=== PATIENT | female | born 1975 | race Caucasian/White ===

== ENCOUNTER 2016-12-27 20:37 | Inpatient (IN) ==
[2016-12-27 21:05] LABS: MANUAL DIFF NEEDED? NO
[2016-12-27 21:12] LABS: BASO% 0.1 % (0.0-0.8); HEMATOCRIT 43.6 % (37.0-47.0); HEMOGLOBIN 14.8 g/dL (12.0-16.0); LYMPH% 12.4 % (20.5-51.1); MCH 28.2 PG (27-31); MCHC 33.9 g/dL (33-37); MONO# 0.48 X1000 (0.11-0.59); MONO% 3.5 % (1.7-9.3); MPV 9.6 FL (7.4-10.4); PLT 341 X1000 (130-400); RBC 5.25 XMIL (4.2-5.4)
[2016-12-27 21:20] LABS: INR 1.01; PROTIME 10.6 Seconds (9.2-11.7); PTT 26.7 Seconds (22.0-36.0)
[2016-12-27 21:33] LABS: AGAP 16; ALBUMIN 4.1 g/dL (3.5-5.0); ALKALINE PHOSPHATASE 83 U/L (32-104); BUN 9 mg/dL (8-22); CALCIUM 9.5 mg/dL (8.8-10.2); CHLORIDE 94 mmol/L (98-107); COSMO 273; GOT 30 U/L (10-30); GPT 37 U/L (10-36); POTASSIUM 4.4 mmol/L (3.5-5.1); SODIUM 136 mmol/L (136-145); TCO2 26 mmol/L (25-35); TOTAL BILIRUBIN 0.48 mg/dL (0.20-1.00); TOTAL PROTEIN 8.4 g/dL (6.3-8.3)
[2016-12-27] MEDS ORDERED: FLAGYL 500 MG/NS 500 MG/100 ML IVPB IV ONE (23:31)
[2016-12-27] MEDS ORDERED: NS 1,000 ML IV ONE (23:31)
[2016-12-27] MEDS ORDERED: LEVAQUIN 750 MG/D5W 750 MG/150 ML IVPB IV ONE (23:31)
[2016-12-28] MEDS: ZOFRAN IV PRN (00:46)
[2016-12-28] MEDS: LEVAQUIN PO SCH ×2 (01:23→21:31)
[2016-12-28] MEDS: NS 1,000 ML IV SCH ×2 (02:15→10:35)
[2016-12-28] MEDS ORDERED: METHADONE PO ONE (02:40)
--- NOTE | 2016-12-28 06:58 | HISTORY AND PHYSICAL ---
CHIEF COMPLAINT: Bloody stools. HISTORY OF PRESENTING ILLNESS: A 41-year-old, obese female with a history of lupus and chronic low back pain. Apparently, he has been on large amounts of pain medication including methadone and [place]. She presented to the emergency department with complaint of having bloody diarrhea for the past day or so. The patient states that she noticed a large amount of blood in the stools. The patient states that she is usually constipated, however she takes a bowel regimen and over the past day or so she developed these symptoms. She was evaluated in the ER, was it was noted that she did have bloody stools as per ER physician, and due to these findings it was thought that she would need hospitalization for further management. At the time of my examination, she had denied any headache, vision changes, fevers, chills, chest pain, shortness of breath or any recent weight changes. PAST MEDICAL HISTORY: 1. Lupus. 2. Chronic low back pain. PAST SURGICAL HISTORY: 1. Hysterectomy. 2. Bladder sling and mesh placement. ALLERGIES: 1. Ambien. 2. Nubain. 3. Stadol. CURRENT MEDICATIONS: As listed in the MAR. SOCIAL HISTORY: She denies any history of smoking, alcohol or illicit drug use. FAMILY HISTORY: No history of coronary disease. REVIEW OF SYSTEMS: Twelve point review of systems as in HPI. Other systems negative. PHYSICAL EXAMINATION: GENERAL: Cooperative, friendly, obese female. She is resting comfortably now. VITAL SIGNS: Temperature 99.2 degrees, pulse 148, respiration 18, blood pressure 130/63. She is saturating 96%. HEENT: Atraumatic, normocephalic. Extraocular movements intact. PERRLA. NECK: No masses. CHEST: Clear to auscultation. CARDIOVASCULAR: Regular rate and rhythm. ABDOMEN: Soft, obese, positive bowel sounds. EXTREMITIES: No edema. NEUROLOGIC: She is awake, alert, oriented x3. : No bladder distention. SKIN: Warm. LABORATORIES AND STUDIES: WBC 13.74, hemoglobin 14.8, hematocrit 43.6, platelets 341,000, sodium 136, potassium 4.4, chloride 94, CO2 of 26, BUN is 9, creatinine is 0.8, glucose is 141. ASSESSMENT: A 41 year obese female with a history of lupus and chronic low back pain who presents to emergency department with 1-day history of bloody mucus. He had bloody diarrhea. The patient will need hospitalization for further management. ASSESSMENT: 1. Hemorrhagic colitis. 2. Lupus. 3. Chronic low back pain. 4. Chronic pain syndrome. PLAN: 1. We will admit patient to medical floor. 2. We will keep patient NPO and start patient on IV fluids. 3. We will check stool studies and start patient on p.o. antibiotics due to benefits from it. 4. We will consult Gastroenterology. 5. We will restart home medications. 6. We will give patient pain control. 7. Put patient on DVT prophylaxis with SCDs. 8. We will continue to follow and reassess. cc: Shayne Pillai MD
[2016-12-28] MEDS: METHADONE PO SCH (09:00)
--- NOTE | 2016-12-28 09:45 | Diag Imaging Result Document ---
PROCEDURE NAME: CT ABD/PELVIS W/ IV CONT ONLY - 12/27/2016 CT ABDOMEN AND PELVIS WITH IV CONTRAST: COMPARISON: 07/17/2016. FINDINGS: There is diffuse hepatic steatosis. There is a tiny stable umbilical hernia containing only fat. There is diffuse colonic wall thickening extending from the mid transverse colon distally through the rectum consistent with nonspecific colitis/proctitis, likely infectious or inflammatory. There is mild inflammatory stranding surrounding this segment of the colon and rectum. There is no evidence of bowel obstruction. There has been a previous hysterectomy. No significant free fluid is identified, and there is no free abdominal gas. The remainder of the solid viscera of the abdomen and pelvis and the remainder of the GI tract is essentially unremarkable. IMPRESSION: 1. Colitis/proctitis as detailed above. 2. Diffuse hepatic steatosis. 3. Other incidental/nonacute findings detailed above. [facility]
[2016-12-28] MEDS ORDERED: CITRATE OF MAGNESIA PO ONE (13:21)
--- NOTE | 2016-12-28 17:10 | CONSULTATION ---
DATE OF CONSULTATION: 12/28/2016 REASON FOR CONSULTATION: Rectal bleeding. HISTORY OF PRESENT ILLNESS: This is a 41-year-old, white female, who reports feeling bad starting last week. Yesterday she had noticed abdominal cramping. She started having multiple diarrhea stools over the next 6 hours. She had felt like she was impacted initially. She had watery stool with some clumps. She reports chronic constipation due to chronic pain medication use. She has been on Amitiza in the past. Recently Dr. Haney had started her on Linzess. She is on methadone and [place] for chronic pain syndrome. The patient reports onset of rectal bleeding yesterday. She has had multiple bright red bloody stools with noted mucus. She denies fever. She has had nausea and an episode of vomiting. She denies hematemesis. She had a CT scan of the abdomen and pelvis on admission that showed colitis/proctitis, diffuse hepatic steatosis. She has stool studies done. C. Difficile toxin was negative. Stool culture and O and P are still pending. There was rare WBCs. Patient reports having a colonoscopy in the past over 15 years ago. She is not sure if she has ever had an EGD. She does state that she was told she had an ulcer in her stomach over 20 years ago. She reports having a hysterectomy and bladder sling surgery in 2009. Starting in 2012, she started having problems with frequent urinary tract infections, and had to have urinary catheter for almost 8 months. She states recently she has had 2 surgeries to take mesh that was placed during her hysterectomy out. Her last surgery was in [place] by urologist there in June 2015. She is currently living with her [id number]. Her is working in [place] and they have plans to move there eventually. PAST MEDICAL HISTORY: Fibromyalgia, Lupus, chronic pain. PAST SURGICAL HISTORY: 1. Hysterectomy with bladder sling and mesh placement. 2. Sinus surgery. ALLERGIES: Stadol and Nubain. HOME MEDICATIONS: 1. [place] 10/325 three times a day as needed. 2. Lexapro 20 mg daily. 3. Zofran 8 mg every 8 hours as needed. 4. Flexeril 10 mg three times a day as needed. 5. Ambien 10 mg every night as needed. 6. Methadone 10-20 mg 3 times a day as needed. 7. Xanax 1 mg three times a day. 8. Flexeril 10 mg three times a day as needed. SOCIAL HISTORY: She denies tobacco or alcohol use. She is . She has 2 children ages 18 and 20. She is currently living with her [id number]. Her works out of state. REVIEW OF SYSTEMS: Per HPI. PHYSICAL EXAMINATION: Vital Signs: Temperature 99.2 degrees, pulse 99, respirations 16, blood pressure 144/75. General: Patient is awake, alert, in no acute distress. HEENT: Normocephalic, atraumatic. Pupils equal, round, reactive to light. She does have a rash or acne on her face. Chest/Respiratory: Lung sounds essentially clear. Cardiovascular: Regular rate and rhythm. Abdomen: Soft. Positive bowel sounds. Obese. Some mild tenderness with palpation. Extremities: No lower extremity edema noted. Neurological: Cranial nerves 2- 12 grossly intact. Patient is awake, alert, oriented to person, place, and time. DIAGNOSTIC RESULTS: Hematology: White count 13.74, hemoglobin 14.8, hematocrit 43.6, MCV 83.0, platelet 341. Coagulation: Pro time 10.6, INR 1.01. PTT 26.7. Chemistry: Sodium 136, potassium 4.4, chloride 94, CO2 26, BUN 9, creatinine 0.8, glucose 141, total bilirubin 0.48, AST 30, ALT 37, alkaline phosphatase 83. ASSESSMENT: 1. Rectal bleeding. 2. Chronic constipation. 3. Abnormal computed tomography scan showing colitis versus proctitis. 4. Chronic pain syndrome on methadone and [place]. 5. Lupus. 6. Fibromyalgia. PLAN: Stool studies so far have been negative. O and P and C and S are pending , but stool for C. difficile colitis was negative. Continue to monitor for active bleeding. Monitor hemoglobin and hematocrit. Currently hemoglobin and hematocrit are normal. Continue current medications for constipation, but we will clean her out in preparation for a colonoscopy. Patient states she is unable to tolerate gallon colon prep. I will give her a bottle of magnesium citrate followed by Suprep colon prep and plan for colonoscopy on . Further plans to be made according to findings. I have discussed the procedure, along with benefits and risks with the patient and her [id number] who is at the bedside. They voiced understanding and wished to proceed. I have discussed this case with Dr. Martinez. Further plans to be made by him. Thank you for this consultation. Dictated by KAHTARINE Armstrong for Parker Martinez MD cc: KATHARINE Muhammad MD [facility]
[2016-12-28] MEDS ORDERED: MISC. PHARMACY COMMUNICATION SCH (18:00)
[2016-12-28] MEDS ORDERED: FLEXERIL PO PRN (18:50)
[2016-12-28] MEDS ORDERED: AMBIEN PO PRN (18:50)
[2016-12-28] MEDS ORDERED: XANAX PO ONE (21:08)
[2016-12-28] MEDS: MORPHINE IV PRN (21:35)
[2016-12-29] MEDS: NS 1,000 ML IV SCH ×5 (00:02→16:13)
[2016-12-29] MEDS: MORPHINE IV PRN ×4 (03:20→22:41)
[2016-12-29 07:37] LABS: BASO% 0.2 % (0.0-0.8); MANUAL DIFF NEEDED? NO
[2016-12-29] MEDS: METHADONE PO SCH ×2 (08:07→20:42)
[2016-12-29] MEDS: XANAX PO SCH ×3 (08:07→16:12)
[2016-12-29] MEDS: ZOFRAN IV PRN ×3 (08:08→22:41)
[2016-12-29] MEDS: LEXAPRO PO SCH (08:08)
[2016-12-29 08:25] LABS: AGAP 11; BUN 9 mg/dL (8-22); CALCIUM 8.5 mg/dL (8.8-10.2); CHLORIDE 101 mmol/L (98-107); COSMO 272; POTASSIUM 4.1 mmol/L (3.5-5.1); SODIUM 137 mmol/L (136-145); TCO2 25 mmol/L (25-35)
[2016-12-29 08:58] LABS: EOS# 0.16 X1000 (0.0-0.7); EOS% 2.7 % (0.0-10.0); HEMATOCRIT 33.3 % (37.0-47.0); HEMOGLOBIN 10.9 g/dL (12.0-16.0); LYMPH# 2.83 X1000 (1.2-3.4); LYMPH% 47.4 % (20.5-51.1); MCH 28.3 PG (27-31); MCHC 32.7 g/dL (33-37); MCV 86.5 FL (81-99); MONO# 0.43 X1000 (0.11-0.59); MONO% 7.2 % (1.7-9.3); MPV 9.9 FL (7.4-10.4); NEUT% 42.5 % (42.2-75.2); PLT 213 X1000 (130-400); RBC 3.85 XMIL (4.2-5.4)
[2016-12-29] MEDS: SODIUM CHLORIDE 0.9% INJ SCH (12:13)
[2016-12-29] MEDS: PROTONIX IV SCH (12:13)
--- NOTE | 2016-12-29 12:28 | PROGRESS NOTE ---
DATE: 12/29/2016 SUBJECTIVE: This patient states that she is feeling better, but she is complaining of lower abdominal pain. She states also that she has been having bloody bowel movement. The Gastroenterology Department evaluated this patient and they will perform a colonoscopy tomorrow. Also, this patient has been on methadone at home twice a day. I will increase the dose of methadone from once a day here in the hospital to twice a day. OBJECTIVE: Vital Signs: Temperature 98.6 degrees, pulse 93, respiratory rate 18, blood pressure 132/68, and oxygen saturation 97% on room air. HEENT: Head normocephalic. No trauma. PERRLA. There is a rash at the level of the face that is chronic, as per the patient, and related to systemic lupus erythematosus. Neck: Supple. No JVD. No masses. Central trachea. Chest: Clear to auscultation. No wheezing. No rales. Abdomen: Soft, tender to palpation at the level of the periumbilical area and lower abdominal area. Positive bowel sounds. Extremities: No edema. No clubbing. No cyanosis. Neurological: The patient is alert and oriented x3. No focal neurological deficits. LABORATORY: WBC 5.9, hemoglobin 10.9, hematocrit 33.3, platelets 213,000. Sodium 137, potassium 4.1, chloride 101, bicarbonate 25, BUN 9, creatinine 0.7, glucose 88, calcium 8.5. ASSESSMENT AND PLAN: 1. Hemorrhagic colitis. Gastroenterology Department evaluated this patient and she will get tomorrow a colonoscopy. She will be prepared today for that and n.p.o. after midnight. 2. Systemic lupus erythematosus. She has a chronic rash on her face. We will continue to monitor. 3. Chronic low back pain and chronic pain syndrome. This patient has been on methadone twice a day. Here in the hospital, she was getting it once a day and I increased the dose from 10 mg once a day to twice a day. 4. Deep vein thrombosis prophylaxis. Continue with SCDs. 5. Gastrointestinal prophylaxis. This patient will be placed on pantoprazole. cc: Miguelito Zuniga MD
[2016-12-29] MEDS: NON-FORMULARY BULK MED PO SCH (17:22)
[2016-12-29] MEDS ORDERED: MISC. PHARMACY COMMUNICATION SCH (18:00)
[2016-12-29] MEDS ORDERED: PNEUMOVAX 23 IM ONE (19:30)
[2016-12-29] MEDS: LEVAQUIN PO SCH (20:42)
[2016-12-30] MEDS: NS 1,000 ML IV SCH ×3 (02:04→18:15)
[2016-12-30] MEDS: MORPHINE IV PRN ×5 (02:37→22:43)
[2016-12-30] MEDS: NON-FORMULARY BULK MED PO SCH (05:47)
[2016-12-30 06:30] LABS: MANUAL DIFF NEEDED? NO
[2016-12-30 06:33] LABS: BASO% 0.1 % (0.0-0.8); EOS# 0.16 X1000 (0.0-0.7); EOS% 2.2 % (0.0-10.0); HEMATOCRIT 35.1 % (37.0-47.0); HEMOGLOBIN 11.4 g/dL (12.0-16.0); LYMPH# 3.02 X1000 (1.2-3.4); LYMPH% 41.1 % (20.5-51.1); MCH 27.9 PG (27-31); MCHC 32.5 g/dL (33-37); MONO# 0.41 X1000 (0.11-0.59); MONO% 5.6 % (1.7-9.3); MPV 9.6 FL (7.4-10.4); PLT 244 X1000 (130-400); RBC 4.08 XMIL (4.2-5.4)
[2016-12-30] MEDS: ZOFRAN IV PRN ×4 (06:49→22:43)
[2016-12-30 06:55] LABS: AGAP 10; BUN 6 mg/dL (8-22); CALCIUM 9.1 mg/dL (8.8-10.2); CHLORIDE 101 mmol/L (98-107); COSMO 275; SODIUM 139 mmol/L (136-145); TCO2 28 mmol/L (25-35)
[2016-12-30] MEDS: LEXAPRO PO SCH ×2 (09:54→09:55)
[2016-12-30] MEDS: XANAX PO SCH ×3 (09:54→17:56)
[2016-12-30] MEDS: METHADONE PO SCH ×2 (09:55→14:20)
[2016-12-30] MEDS: PROTONIX IV SCH (11:14)
[2016-12-30] MEDS: SODIUM CHLORIDE 0.9% INJ SCH (11:14)
[2016-12-30] MEDS ORDERED: DIPRIVAN 1% ONE (14:09)
[2016-12-30] MEDS ORDERED: FENTANYL ONE (14:09)
[2016-12-30] MEDS ORDERED: LR 1,000 ML ONE (15:25)
[2016-12-30] MEDS ORDERED: XYLOCAINE-MPF 2% ONE (15:25)
--- NOTE | 2016-12-30 15:53 | PROGRESS NOTE ---
DATE: 12/30/2016 SUBJECTIVE: This patient states that she is feeling better. She is still complaining of mild abdominal pain, but compared with yesterday it is better. She will get a colonoscopy done today. Vital signs are stable. OBJECTIVE: Vital Signs: Temperature 98 degrees, pulse 98, respiratory rate 18, blood pressure 128/72, oxygen saturation 97% on 2 L of nasal cannula. HEENT: Head normocephalic. No trauma. PERRLA. Neck: Supple. No JVD. No masses. Central trachea. Skin: She has a rash at the level of the face that is chronic as per the patient and related to SLE, Chest: Clear to auscultation. No wheezing. No rales. Abdomen: Soft. Mild tenderness to palpation at the level of the periumbilical area and lower abdominal area. Positive bowel sounds. Extremities: No edema. No clubbing. No cyanosis. Neurological examination: The patient is alert and oriented x3. No focal neurological deficits. LABORATORY: WBC 7.3, hemoglobin 11.4, hematocrit 35.1, platelets 244. Sodium 139, potassium 4, chloride 101, bicarbonate 28. BUN 6, creatinine 0.8, glucose 97, calcium 9.1. ASSESSMENT AND PLAN: 1. Hemorrhagic colitis. Gastroenterology Department evaluated this patient. She is getting a colonoscopy today. We will follow their recommendations. 2. Systemic lupus erythematosus. She has a chronic rash on her face. We will continue to monitor. 3. Chronic pain, at the level of the back. This patient has been on methadone twice a day. I will continue with the same management here. 4. Deep vein thrombosis prophylaxis. Continue with sequential compression devices. 5. Gastrointestinal prophylaxis. This patient is on pantoprazole. cc: Miguelito Zuniga MD
[2016-12-30] MEDS: LEVAQUIN PO SCH (20:30)
[2016-12-31] MEDS: METHADONE PO SCH ×3 (00:52→21:29)
[2016-12-31] MEDS: NS 1,000 ML IV SCH ×2 (00:53→09:02)
[2016-12-31] MEDS: MORPHINE IV PRN ×5 (04:33→23:23)
[2016-12-31] MEDS: ZOFRAN IV PRN ×5 (04:33→23:23)
--- NOTE | 2016-12-31 05:55 | OPERATIVE NOTE ---
PROCEDURE DATE: 12/30/2016 PROCEDURE: Colonoscopy and biopsy. PREOPERATIVE DIAGNOSIS: Abdominal pain, diarrhea, and rectal bleeding. POSTOPERATIVE DIAGNOSIS: Colitis, most likely infectious, biopsied. MEDICATIONS: MAC as per Anesthesia. SCOPE: Olymp[employer] CF HQ [id number]. HISTORY: This is a 41-year-old white female admitted to hospital with abdominal pain, diarrhea, and rectal bleeding. Endoscopy was done for diagnostic, as well as therapeutic purposes. DESCRIPTION OF PROCEDURE: Informed consent obtained from the patient. The procedure, risks, benefits, and alternatives were explained in layman's terms. She understood. All the pertinent questions answered. Risks of but not limited to bleeding, perforation, aspiration, and pneumonia was explained. She understood and agreed to proceed. The patient was brought to the endoscopy unit and was premedicated as per Anesthesia. After adequate sedation, while she was lying in left lateral position, digital rectal exam was performed which was normal. Scope was then gently introduced into the rectum and advanced under direct vision. Starting at the rectosigmoid junction in the distal sigmoid colon, I did the mucosa was hyperemic and edematous patches. There were erosions noted. Patchy involvement of the mucosa was noted with no evidence of active bleeding. The appearance was suggestive of infectious colitis. Multiple biopsies were taken from the affected part. I was able to advance the scope all the up the cecum. The cecum was identified by ileocecal valve and appendiceal orifice. Scope was then passed through the normal ileocecal valve, into terminal ileum. About 8-10 cm of terminal ileum was examined, which was normal. The scope was withdrawn back into the cecum, back through the parts of colon, all the way up the rectum, paying attention to details. Preparation was good. Again, the visualized portion of the colon revealed colitis involving the distal sigmoid colon, sparing the terminal ileum, as well as the rectum. No polyps, tumors, or cancers were seen. Scope was then removed. Patient tolerated the procedure well. No complications noted. Patient was then transferred to the recovery area in a stable condition. IMPRESSION: Mild to moderate colitis involving the distal colon, appearance suggestive of infectious colitis. RECOMMENDATION: Advised to continue antibiotic, but I would switch it to p.o. start full liquid diet. Avoid milk and milk products. Follow up the biopsy report and follow up with the office after discharge. Depending on the progress and the biopsy report, further plans made. I have explained the findings and plan with the patient, as well as her [id number]. Answered all their pertinent questions. cc: Parkre Martinez MD
[2016-12-31 06:35] LABS: MANUAL DIFF NEEDED? NO
[2016-12-31 06:39] LABS: BASO% 0.2 % (0.0-0.8); EOS# 0.14 X1000 (0.0-0.7); EOS% 2.8 % (0.0-10.0); HEMATOCRIT 32.5 % (37.0-47.0); HEMOGLOBIN 10.4 g/dL (12.0-16.0); LYMPH# 2.25 X1000 (1.2-3.4); LYMPH% 45.5 % (20.5-51.1); MCH 27.8 PG (27-31); MCV 86.9 FL (81-99); MONO# 0.21 X1000 (0.11-0.59); MONO% 4.2 % (1.7-9.3); MPV 9.8 FL (7.4-10.4); NEUT% 47.3 % (42.2-75.2); PLT 212 X1000 (130-400); RBC 3.74 XMIL (4.2-5.4)
[2016-12-31 07:02] LABS: AGAP 9; BUN 5 mg/dL (8-22); CALCIUM 8.3 mg/dL (8.8-10.2); CHLORIDE 104 mmol/L (98-107); COSMO 278; POTASSIUM 3.9 mmol/L (3.5-5.1); SODIUM 140 mmol/L (136-145); TCO2 27 mmol/L (25-35)
[2016-12-31] MEDS: LEXAPRO PO SCH (09:01)
[2016-12-31] MEDS: XANAX PO SCH ×3 (09:12→21:29)
--- NOTE | 2016-12-31 13:21 | PROGRESS NOTE ---
DATE: 12/31/2016 SUBJECTIVE: This patient states that she is feeling better. She is tolerating liquids. I will advance the diet to a soft mechanical diet. The plan is to see how she does for today, continue with antibiotics, see if she tolerates a soft mechanical diet, and see if she has a bowel movement. If everything is okay, she can be discharged tomorrow. OBJECTIVE: Vital Signs: Temperature 98.1 degrees, pulse 79, respiratory rate 16, blood pressure 110/89, oxygen saturation 100% on 2L of nasal cannula. HEENT: Head normocephalic. No trauma. PERRLA. She has a facial rash that has been chronic, as per the patient, and is related to SLE. Neck: Supple. No JVD. No masses. Central trachea. Cardiovascular: RRR. No murmurs. Abdomen: Soft, obese. Mild tenderness to palpation in the lower abdominal area. Positive bowel sounds. Extremities: No edema. No clubbing. No cyanosis. Neurological: The patient is alert and oriented x3. No focal neurological deficits. LABORATORY: WBC 4.9, hemoglobin 10.4, hematocrit 32.5, platelets 212,000. Sodium 140, potassium 3.9, chloride 104, bicarbonate 27, BUN 5, creatinine 0.8, glucose 115, calcium 8.3. ASSESSMENT AND PLAN: 1. Hemorrhagic colitis. This patient had a colonoscopy done yesterday that showed moderate colitis, likely infectious. This patient has been placed on antibiotics and diet. I will advance the diet today to see if she tolerates and, hopefully, tomorrow I can discharge this patient. 2. Systemic lupus erythematosus. She has a chronic rash on her face. We will continue to monitor. 3. Chronic pain at the level of the lower back. This patient has been on methadone twice a day and this has been chronic. I will continue with the same management here. 4. Deep vein thrombosis prophylaxis. Continue with SCDs. 5. Gastrointestinal prophylaxis. This patient is on pantoprazole. cc: Miguelito Zuniga MD
[2016-12-31] MEDS: PROTONIX IV SCH (14:45)
--- NOTE | 2016-12-31 14:52 | PROGRESS NOTE ---
DATE: 12/31/2016 SUBJECTIVE: Patient states she feels better. She has had some abdominal pain. She states they had sent milk products on her tray, caused a little stomach upset. OBJECTIVE: She had a colonoscopy on 12/30/2016 that showed colitis [id number] involving the distal colon, most likely infectious colitis. ASSESSMENT AND PLAN: She is recommended to continue antibiotics and avoid milk and dairy products. We will follow on the biopsy, and further plans will be made according to findings and according to her symptoms. I have advised her to follow up in the office after discharge. She voices understanding. Dictated by KATHARINE Armstrong for Parker Martinez MD cc: KATHARINE Muhammad MD
[2016-12-31] MEDS: LEVAQUIN PO SCH (21:29)
[2017-01-01] MEDS: MORPHINE IV PRN ×3 (05:41→13:09)
[2017-01-01] MEDS: ZOFRAN IV PRN ×3 (05:42→13:09)
[2017-01-01 06:37] LABS: MANUAL DIFF NEEDED? NO
[2017-01-01 06:44] LABS: BASO% 0.3 % (0.0-0.8); EOS# 0.17 X1000 (0.0-0.7); HEMATOCRIT 35.9 % (37.0-47.0); HEMOGLOBIN 11.8 g/dL (12.0-16.0); LYMPH# 2.76 X1000 (1.2-3.4); LYMPH% 48.2 % (20.5-51.1); MCH 28.2 PG (27-31); MCHC 32.9 g/dL (33-37); MCV 85.7 FL (81-99); MONO# 0.29 X1000 (0.11-0.59); MONO% 5.1 % (1.7-9.3); MPV 9.6 FL (7.4-10.4); NEUT% 43.4 % (42.2-75.2); PLT 225 X1000 (130-400); RBC 4.19 XMIL (4.2-5.4)
[2017-01-01 07:06] LABS: AGAP 12; BUN 7 mg/dL (8-22); CALCIUM 9.1 mg/dL (8.8-10.2); CHLORIDE 102 mmol/L (98-107); COSMO 281; POTASSIUM 4.4 mmol/L (3.5-5.1); SODIUM 142 mmol/L (136-145); TCO2 28 mmol/L (25-35)
[2017-01-01] MEDS: XANAX PO SCH ×2 (08:57→12:22)
[2017-01-01] MEDS: METHADONE PO SCH (08:57)
[2017-01-01] MEDS: LEXAPRO PO SCH (08:58)
[2017-01-01] MEDS: PROTONIX IV SCH (12:20)
[2017-01-01] MEDS: SODIUM CHLORIDE 0.9% INJ SCH (12:20)
[2017-01-01 14:03] VITALS: BP 103/51
--- NOTE | 2017-01-01 18:48 | DISCHARGE SUMMARY ---
ADMISSION DATE: 12/28/2016 DISCHARGE DATE: 01/01/2017 PRIMARY CARE PHYSICIAN: Dr. Aissatou Haney. DISCHARGE DIAGNOSES: 1. Hemorrhagic colitis. 2. Morbid obesity. 3. Chronic pain. 4. Depression. 5. Anxiety disorder. 6. Insomnia. DISCHARGE MEDICATIONS: 1. [place] 10 t.i.d. as needed. 2. Lexapro 20 mg p.o. daily. 3. Zofran 8 mg p.o. p.r.n. 4. Flexeril 10 mg t.i.d. 5. Ambien at 10 mg p.o. p.r.n. 6. Methadone 10-20 mg t.i.d. 7. Xanax 1 mg p.o. t.i.d. 8. Flexeril 10 mg p.o. t.i.d. p.r.n. 9. MiraLAX 17 g daily. 10. Colace 200 mg at bedtime. CONSULTATION: GI will consulted. Dr. Martinez saw the patient and did a colonoscopy and showed the patient has significant hemorrhagic colitis, infectious. The patient has been on antibiotics here for almost [address] Martinez did not want her to be on any more antibiotics. LABORATORY: At discharge, white count 5.73, hemoglobin 11.8, hematocrit of 35.9, platelets 225,000. Chemistry: Sodium 142, potassium 4.4, chloride 102, bicarb 28. BUN 7, creatinine 0.7, glucose of 90. PROCEDURES: Colonoscopy with a biopsy, colitis most likely infectious. Will biopsy. Report is still pending. HOSPITAL COURSE: The patient is a 41-year-old, white female with history of lupus, lower back pain on [place] and methadone admitted to the hospital for bloody stool. She was found to have an infectious colitis per GI who did the colonoscopy and biopsy. Biopsy is still pending. The patient is improving. She was placed on Levaquin and has been tolerating it well. Her pain still persists but is improved. No diarrhea. The patient is constipated as a matter of fact. It is understandable as the patient is on pain medications. I put the patient on Colace and MiraLAX. Discussed with Dr. Martinez today who is thinking the patient can go home with antibiotics and he will see the patient back in the office to discuss with her the biopsy result. Overall she is doing well. Much improved. We will discharge the patient home today. Her vital signs: Blood pressure is 107/57, pulse of 74, respirations 16, temperature 98.1, sat 99% room air. General appearance: Well-developed, well-nourished white female in no acute distress. HEENT: Anicteric. Clear conjunctivae. Neck: Supple. No JVD. No bruits. Cardiovascular: S1, S2. Normal rate and rhythm. No murmur, rubs, or gallops. Pulmonary: Clear to auscultation bilaterally. GI: Soft, nontender, nondistended. Normoactive bowel sounds. Musculoskeletal: No clubbing, cyanosis, or edema. PLAN: We will discharge the patient home. CONDITION: Stable and improving. ACTIVITY: As tolerated. DIET: Is soft diet. Avoid milk products. We will discharge her home. TIME SPENT: Total time discharging this patient is 35 minutes. cc: Aissatou Haney MD
--- NOTE | 2017-01-05 23:51 | PROVIDER DOCUMENTATION ---
This chart was entered by Vivian Grewal Scribe, acting as scribe for Milad Dos Santos MD. HPI-Abdominal Pain/GI Problem - General Chief Complaint: Rectal Bleeding Stated Complaint: BLOOD DIARRHEA Time Seen by Provider: 12/27/16 22:23 Source: patient Allergies/Adverse Reactions: Patient Allergies Allergy/AdvReac Type Severity Reaction Status Date / Time butorphanol tartrate * AdvReac Unknown Verified 12/27/16 20:47 [From Stadol] nalbuphine HCl * AdvReac Unknown Verified 12/27/16 20:47 [From Nubain] Home Medications: Home Medication List Medication Instructions Recorded Confirmed Last Taken Type Alprazolam [Xanax] 1 mg PO TID 07/17/16 12/28/16 12/27/16 History Methadone HCl 10 - 20 mg PO TID PRN 07/17/16 12/28/16 12/27/16 History Cyclobenzaprine [Flexeril] 10 mg PO TID PRN 12/27/16 12/27/16 12/27/16 History Cyclobenzaprine [Flexeril] 10 mg PO TID PRN 12/28/16 12/28/16 12/27/16 History Escitalopram Oxalate [Lexapro] 20 mg PO DAILY 12/28/16 12/28/16 12/27/16 History Hydrocodone/Acetaminophen [[place] 1 each PO TID PRN 12/28/16 12/28/16 12/27/16 History 10-325 Tablet] Ondansetron Odt [Zofran Odt] 8 mg PO Q8H PRN PRN 12/28/16 12/28/16 12/27/16 History Zolpidem [Ambien] 10 mg PO QHS PRN 12/28/16 12/28/16 12/27/16 History Docusate Sodium [Colace] 200 mg PO QHS #30 capsule 01/01/17 Unknown Rx Polyethylene Glycol 3350 [Miralax] 17 gm PO DAILY #30 powd.pack 01/01/17 Unknown Rx - History of Present Illness-ABD Nature of Presenting Problems: 41 year old F presents to the ED with a cc of rectal bleeding. Pt states that she woke this morning with ABD cramping and diarrhea. Pt states that she has taken Pepto Bismol and Immodium with mild relief. PT states that she later this afternoon she began having bloody diarrhea mixed with mucous. PT states that she has been drinking Gatorade. PT has a hx of a falling bladder and rectum. Pt states also over the weekend she was running a fever of 100.6. Abdominal Pain Onset Location: reports: periumbilical Quality of Pain: reports: cramping Severity in ED: reports: mild Onset/Duration: reports: this morning Timing: reports: still present Activities at Onset: reports: none Modifying Factors: improves with: nothing Associated Symptoms: reports: diarrhea, fever/chills Bruising or Bleeding Gums?: No Similar Symptoms Previously?: No Recently seen or treated by another doctor?: No Review of Systems - Adult - REVIEW OF SYSTEMS - ADULT Constitutional: reports: fever, fatique. denies: chills Eyes: reports: no symptoms reported Ears, Nose, Mouth & Throat: reports: no symptoms reported Cardiovascular: denies: chest pain, palpitations Respiratory: denies: cough, shortness of breath Gastrointestinal: reports: abdominal pain, diarrhea, rectal bleeding. denies: nausea, vomiting Genitourinary: reports: no symptoms reported Musculoskeletal: reports: no symptoms reported Integumentary: reports: no symptoms reported Neurological: reports: no symptoms reported Psychiatric: reports: no symptoms reported Endocrine: reports: no symptoms reported Hematologic/Lymphatic: reports: no symptoms reported Allergic/Immunologic: reports: no symptoms reported All Other Systems: Reviewed and Negative Past History - Adult - PAST MEDICAL HISTORY-ADULT Review of Records: reports: Nursing Assessment Review, Medications Reviewed Major Childhood Illnesses: reports: denies history Cardiovascular: reports: HTN Obstetrical/Gynecological: reports: uterine/ovarian cancer Endocrine/Immune: reports: Diabetes - PRIOR SURGERIES/PROCEDURES Surgical/Procedure History: reports: hysterectomy, other (BLADDER SLING) - IMMUNIZATION STATUS Childhood Immunizations: See Nurse Assessment Flu Vaccine: See Nurse Assessment - SOCIAL HISTORY Smoking: non-smoker Substance Use: none/never Alcohol Use Frequency: never Physical Exam-General - PHYSICAL EXAM-ADULT Initial Vital Signs Reviewed: Yes - CONSTITUTIONAL General Appearance: appears well, alert, no apparent distress, obese - RESPIRATORY Respiratory: chest non-tender, lungs clear, normal breath sounds - CARDIOVASCULAR Cardiovascular: normal peripheral pulses, regular rate, rhythm, no edema - GASTROINTESTINAL (ABDOMEN) Abdominal Exam: normal bowel sounds, soft, tenderness (RLQ) - SKIN Integumentary: normal color, normal turgor, warm/dry - PSYCHIATRIC Psych/Mental Status: normal mood/affect, normal thought content, normal thought process, oriented x 3 Progress - PLAN OF CARE/RESULTS Progress/Plan/Lab Results: Vital Signs - 8 hr 12/27/16 20:40 Temperature 99.2 F Pulse Rate 148 H Respiratory Rate 18 Blood Pressure 130/63 O2 Sat by Pulse Oximetry 96 Laboratory Results - last 24 hr 12/27/16 12/27/16 12/27/16 20:44 20:44 20:44 WBC 13.74 H RBC 5.25 Hgb 14.8 Hct 43.6 MCV 83.0 MCH 28.2 MCHC 33.9 RDW Std Deviation 12.9 Plt Count 341 MPV 9.6 Immature Gran % (Auto) 0.0 Neut % (Auto) 84.0 H Lymph % (Auto) 12.4 L [place] % (Auto) 3.5 Eos % (Auto) 0.0 Baso % (Auto) 0.1 Immature Gran # (Auto) 0.00 Neut # (Auto) 11.55 H Lymph # (Auto) 1.70 [place] # (Auto) 0.48 Eos # (Auto) 0.00 Baso # (Auto) 0.01 PT 10.6 INR 1.01 PTT (Actin FS) 26.7 Sodium 136 Potassium 4.4 Chloride 94 L Carbon Dioxide 26 Anion Gap 16 BUN 9 Creatinine 0.8 Estimated GFR/1.73 m2 > 60 BUN/Creatinine Ratio 11 Glucose 141 H Calculated Osmolality 273 Calcium 9.5 Total Bilirubin 0.48 AST 30 ALT 37 H Alkaline Phosphatase 83 Total Protein 8.4 H Albumin 4.1 Globulin 4.3 Albumin/Globulin Ratio 1.0 Blood Type Antibody Screen 12/27/16 20:44 WBC RBC Hgb Hct MCV MCH MCHC RDW Std Deviation Plt Count MPV Immature Gran % (Auto) Neut % (Auto) Lymph % (Auto) [place] % (Auto) Eos % (Auto) Baso % (Auto) Immature Gran # (Auto) Neut # (Auto) Lymph # (Auto) [place] # (Auto) Eos # (Auto) Baso # (Auto) PT INR PTT (Actin FS) Sodium Potassium Chloride Carbon Dioxide Anion Gap BUN Creatinine Estimated GFR/1.73 m2 BUN/Creatinine Ratio Glucose Calculated Osmolality Calcium Total Bilirubin AST ALT Alkaline Phosphatase Total Protein Albumin Globulin Albumin/Globulin Ratio Blood Type B POSITIVE Antibody Screen NEGATIVE Orders Category Date Time Status Saline Loc DIRECTED Care 12/27/16 20:46 Active CBC WITH ELECTRONIC DIFF [HEME] Stat Lab 12/27/16 20:44 Completed COMPREHENSIVE METABOLIC PANEL [CHEM] Stat Lab 12/27/16 20:44 Completed PROTIME WITH INR [COAG] Stat Lab 12/27/16 20:44 Completed PTT [COAG] Stat Lab 12/27/16 20:44 Completed TYPE & SCREEN [BBK] Stat Lab 12/27/16 20:44 Completed Result Diagrams: 01/01/17 05:58 01/01/17 05:58 - CT/MRI 1 CT Study: Abdomen, Pelvis Impression: Abnormal (Colitis involving the mid and distal colon. No free air. No abscess. No bowel obstruction. Fatty liver. Hysterectomy. No hydronephrosis. Normal gallbladder.: Dr. [place](radiologist)) Departure - Departure Time of Disposition Decision: 23:30 DIAGNOSIS: Hemorrhagic colitis Disposition: ADMITTED INPATIENT 09 Certified Medical Emergency: Emergent Condition: Fair - Critical Care Note This patient required my direct personal management.: No This chart was documented by the indicated scribe, (Vivian Grewal Scribe) and accurately reflects the services I performed and decisions made by me, Milad Dos Santos MD, as attested by the provider's signature.
== END 2017-01-01 15:03 | disposition home or self-care (01) ==
LOC: ED 20:37 → SUATTDRO 12-28 00:34 → EDIPHOLD 12-28 00:34 → 4N 12-28 16:47
PROVIDERS: ATTEND Internal Medicine